=== PATIENT | male | born 1970 | race Two or more races ===

== ENCOUNTER 2023-03-29 15:16 | Inpatient (IN) | payer OTHER ==
[~2023-03-29] VITALS: Ht 167.6 cm; Wt 181.4 kg
[2023-03-29] MEDS ORDERED: XOPENEX HFA15 GM (16:07)
[2023-03-29 17:57] LABS: RED CELL DISTRIBUTION WIDTH 17.5 % (11.5-14.5)
[2023-03-29 18:06] LABS: ALBUMIN 3.3 gm/dL (3.4-5.0); BILIRUBIN TOTAL 0.68 mg/dL (0.3-1.2); CALCIUM 8.4 mg/dL (8.5-10.1); CREATININE SERUM 0.88 mg/dL (0.70-1.30); GFR 90.94; GLOBULINA 5.1 G/DL (2.4-3.5); POTASSIUM 4.18 mEq/L (3.5-5.1); TOTAL PROTEIN 8.4 gm/dL (6.4-8.2)
[2023-03-29 19:23] LABS: HEMATOCRIT 42.9 % (39.0-48.0); MEAN CELL VOLUME 74.7 fL (80.0-100.00); MEAN CORPUSCULAR HGB CONC 31.1 g/dl (32.0-36.0); PLATELET COUNT 201 K/uL (150-450); RED BLOOD COUNT 5.74 M/uL (4.00-6.00)
[2023-03-29 19:27] LABS: HEMOGLOBIN 13.3 g/dL (13-16.00); MEAN CORPUSCULAR HEMOGLOBIN 23.1 pg (27.00-32.0)
[2023-03-29] MEDS ORDERED: FUROsemide 40 MG/4 ML VIAL IV ONE (20:30)
[2023-03-29 21:48] LABS: URINE APPEARANCE Clear; URINE BILIRRUBIN Negative (NEGATIVE); URINE BLOOD Negative; URINE COLOR Yellow; URINE GLUCOSE Negative (NEGATIVE); URINE LEUKOCYTE Negative; URINE NITRATE Negative; URINE PROTEIN Negative (NEGATIVE); URINE UROBILINOGEN 0.2 E.U./dl
[2023-03-29 21:52] LABS: URINE BACTERIA 26.4 uL (0.0-1933); URINE EPITHELIAL CELLS 1.6 uL (0.0-38.8); URINE WBC 3.5 uL (0.0-23.2)
[2023-03-29] MEDS ORDERED: IPRATROPIUM BROMIDE 0.5 MG/2.5 ML AMPUL.NEB IH SCH (22:16)
[2023-03-29] MEDS ORDERED: NITROGLYCERIN IN 5 % DEXTROSE 250 ML IV SCH (22:20)
[2023-03-29] MEDS ORDERED: ENOXAPARIN SODIUM 40 MG/0.4 ML SYRINGE SUBCUTANEO SCH (22:20)
[2023-03-29 22:21] LABS: URINE RBC 0.7 uL (0.0-20.8)
[2023-03-29 22:23] LABS: ABG PH 7.155 (7.35-7.45); ABG PO2 84.4 mmHg (80-100); ABG pCO2 121.1 mmHg (35-45); BASE EXCESS 7.7 mmol/l; BICARBONATE 41.7 mmol/l (23-25); SaO2 92.7 %
[2023-03-29 22:24] LABS: Tco2 45.4 mmol/l; allen test SATISFACTORY; o2 100 %; puncture site RADIAL RIGHT
[2023-03-29 22:25] LABS: ABG PH 7.157 (7.35-7.45); ABG PO2 145.3 mmHg (80-100); ABG pCO2 117.6 mmHg (35-45); BASE EXCESS 6.9 mmol/l; BICARBONATE 40.7 mmol/l (23-25); SaO2 98.4 %; Tco2 44.3 mmol/l
[2023-03-29 22:27] LABS: allen test SATISFACTORY; o2 80 %; puncture site RADIAL LEFT
[2023-03-29] MEDS ORDERED: ONDANSETRON HCL 4 MG in 0.9 % SODIUM CHLORIDE 50 ML IV PRN (22:30)
[2023-03-29] MEDS ORDERED: ACETAMINOPHEN 500 MG GEL..CAP PO PRN (22:30)
[2023-03-29] MEDS ORDERED: METHYLPREDNISOLONE SOD SUCC 125 MG VIAL IV ONE (22:30)
[2023-03-29 23:58] LABS: D DIMER 0.51 MG/L; INR 1.04; PARTIAL THROMBOPLASTIN TIME 36.6 SECONDS (22.0-34.0); PROTHROMBIN TIME 10.9 SECONDS (9.0-11.5)
[2023-03-30] MEDS ORDERED: levoFLOXacin IN DEXTROSE 5 % 150 ML IV SCH (00:53)
[2023-03-30] MEDS ORDERED: OSELTAMIVIR PHOSPHATE 75 MG CAPSULE PO SCH (00:54)
[2023-03-30] MEDS ORDERED: FUROsemide 20 MG/2 ML VIAL IV SCH (01:00)
[2023-03-30 02:32] LABS: ABG PH 7.293 (7.35-7.45); BICARBONATE 39.3 mmol/l (23-25); SaO2 92.4 %; Tco2 41.8 mmol/l; allen test SATISFACTORY; o2 50 %; puncture site RADIAL LEFT
[2023-03-30 07:31] LABS: CHOL HDL RATIO 3.2 (0-5.0); TSH 0.561 uIU/mL (0.358-3.74)
[2023-03-30 08:44] LABS: ABG PH 7.274 (7.35-7.45); ABG PO2 72.9 mmHg (80-100); ABG pCO2 93.2 mmHg (35-45); BASE EXCESS 10.8 mmol/l; BICARBONATE 42 mmol/l (23-25); SaO2 92.6 %; Tco2 2 mmol/l; allen test SATISFACTORY; o2 45.1 %; puncture site RADIAL LEFT
[2023-03-30] MEDS ORDERED: FAMOTIDINE/PF 20 MG in 0.9 % SODIUM CHLORIDE 8 ML IV PUSH SCH (09:00)
[2023-03-30 14:13] LABS: ALBUMIN 3.3 gm/dL (3.4-5.0); BILIRUBIN TOTAL 0.51 mg/dL (0.3-1.2); CREATININE SERUM 0.89 mg/dL (0.70-1.30); GFR 89.76; GLOBULINA 4.9 G/DL (2.4-3.5); POTASSIUM 5.15 mEq/L (3.5-5.1); TOTAL PROTEIN 8.2 gm/dL (6.4-8.2)
[2023-03-31 07:24] LABS: ABG PO2 77.2 mmHg (80-100); ABG pCO2 100.4 mmHg (35-45); BASE EXCESS 14.1 mmol/l; BICARBONATE 46.1 mmol/l (23-25); SaO2 93.9 %; Tco2 49.2 mmol/l; allen test SATISFACTORY; o2 50 %; puncture site RADIAL LEFT
[2023-03-31] MEDS ORDERED: levoFLOXacin IN DEXTROSE 5 % 150 ML IV SCH (17:00)
[2023-04-01 06:24] LABS: ABG PH 7.287 (7.35-7.45)
[2023-04-01 06:25] LABS: ABG PO2 101.1 mmHg (80-100); ABG pCO2 109.8 mmHg (35-45); BASE EXCESS 18.4 mmol/l; BICARBONATE 51.3 mmol/l (23-25); SaO2 97.3 %; Tco2 54.7 mmol/l; o2 50 %; puncture site RADIAL RIGHT
[2023-04-01 06:26] LABS: allen test SATISFACTORY
[2023-04-02 06:56] LABS: ABG PH 7.342 (7.35-7.45); ABG pCO2 97.8 mmHg (35-45); BICARBONATE 51.8 mmol/l (23-25); SaO2 98.7 %
[2023-04-02 06:57] LABS: Tco2 54.8 mmol/l; allen test SATISFACTORY; o2 45 %; puncture site RADIAL RIGHT
[2023-04-02 06:59] LABS: ABG PO2 123.3 mmHg (80-100)
[2023-04-02 07:29] LABS: HEMATOCRIT 43.8 % (39.0-48.0); HEMOGLOBIN 13.5 g/dL (13-16.00); MEAN CELL VOLUME 75.4 fL (80.0-100.00); MEAN CORPUSCULAR HEMOGLOBIN 23.2 pg (27.00-32.0); MEAN CORPUSCULAR HGB CONC 30.8 g/dl (32.0-36.0); PLATELET COUNT 198 K/uL (150-450); RED CELL DISTRIBUTION WIDTH 16.4 % (11.5-14.5)
[2023-04-02 10:01] LABS: BLOOD UREA NITROGEN 16 mg/dL (7-18); BUN CREA RATIO 20 (7.0-25.0); CREATININE SERUM 0.79 mg/dL (0.70-1.30); GLUCOSE FASTING 94 mg/dL (65-100); OSMOLALITY SERUM 277 MOSM/KG (275-295); POTASSIUM 4.43 mEq/L (3.5-5.1); SODIUM 138 mmol/L (136-145)
[2023-04-02 10:02] LABS: ANION GAP 7 (10.0-20.0); CALCIUM 9.6 mg/dL (8.5-10.1); CARBON DIOXIDE > 45 mEq/L (21-32); CHLORIDE 90 mmol/L (98-107)
[2023-04-02] MEDS ORDERED: FUROsemide 20 MG/2 ML VIAL IV SCH (17:00)
[2023-04-03 06:45] LABS: ABG PO2 97.9 mmHg (80-100); ABG pCO2 86.5 mmHg (35-45)
[2023-04-03 06:46] LABS: BASE EXCESS 17.2 mmol/l; BICARBONATE 47.7 mmol/l (23-25); Tco2 50.4 mmol/l; allen test SATISFACTORY; o2 40 %; puncture site RADIAL LEFT
[2023-04-03 06:49] LABS: SaO2 97.6 %
[2023-04-04 06:23] LABS: ABG PH 7.353 (7.35-7.45); ABG PO2 109.4 mmHg (80-100); ABG pCO2 89.7 mmHg (35-45); BASE EXCESS 17.9 mmol/l; BICARBONATE 48.8 mmol/l (23-25); SaO2 98.2 %; Tco2 51.6 mmol/l; allen test SATISFACTORY; puncture site RADIAL LEFT
[2023-04-04 06:24] LABS: o2 40 %
[2023-04-04] MEDS ORDERED: LOSARTAN POTASSIUM 25 MG TABLET PO SCH (09:00)
[2023-04-05 06:36] LABS: ABG PH 7.349 (7.35-7.45); ABG pCO2 89.8 mmHg (35-45); BASE EXCESS 17.4 mmol/l; BICARBONATE 48.3 mmol/l (23-25); Tco2 51.1 mmol/l; o2 40 %
[2023-04-05 06:37] LABS: allen test SATISFACTORY; puncture site RADIAL LEFT
[2023-04-05] MEDS ORDERED: DICYCLOMINE HCL 20 MG TABLET PO SCH (21:00)
[2023-04-06 07:11] LABS: HEMATOCRIT 46.4 % (39.0-48.0); HEMOGLOBIN 14.6 g/dL (13-16.00); MEAN CELL VOLUME 73.7 fL (80.0-100.00); MEAN CORPUSCULAR HEMOGLOBIN 23.2 pg (27.00-32.0); MEAN CORPUSCULAR HGB CONC 31.4 g/dl (32.0-36.0); PLATELET COUNT 181 K/uL (150-450); RED CELL DISTRIBUTION WIDTH 16.6 % (11.5-14.5)
[2023-04-06 08:50] LABS: ABG PH 7.375 (7.35-7.45)
[2023-04-06 08:51] LABS: ABG PO2 96.1 mmHg (80-100); ABG pCO2 82.4 mmHg (35-45); BICARBONATE 47.1 mmol/l (23-25); SaO2 97.6 %; Tco2 49.6 mmol/l; o2 40 %
[2023-04-06 08:52] LABS: allen test SATISFACTORY; puncture site RADIAL LEFT
[2023-04-06 10:36] LABS: ABG PH 7.392 (7.35-7.45)
[2023-04-06 10:37] LABS: ABG PO2 71.5 mmHg (80-100); ABG pCO2 79.5 mmHg (35-45); BASE EXCESS 17.5 mmol/l; BICARBONATE 47.2 mmol/l (23-25); SaO2 94.8 %; Tco2 49.7 mmol/l; allen test SATISFACTORY; o2 50 %; puncture site RADIAL LEFT
[2023-04-06 11:54] LABS: ALBUMIN 3.1 gm/dL (3.4-5.0); BILIRUBIN TOTAL 1.1 mg/dL (0.3-1.2); CALCIUM 9.4 mg/dL (8.5-10.1); CREATININE SERUM 1.62 mg/dL (0.70-1.30); GFR 44.97; GLOBULINA 3.7 G/DL (2.4-3.5); POTASSIUM 3.99 mEq/L (3.5-5.1); TOTAL PROTEIN 6.8 gm/dL (6.4-8.2)
[2023-04-06] MEDS ORDERED: ACETAZOLAMIDE 250 MG TABLET PO SCH (12:00)
[2023-04-06] MEDS ORDERED: FAMOTIDINE/PF 20 MG/2 ML VIAL IV SCH (21:00)
[2023-04-07 06:59] LABS: CALCIUM 8.9 mg/dL (8.5-10.1); CREATININE SERUM 1.49 mg/dL (0.70-1.30); GFR 49.52; POTASSIUM 3.55 mEq/L (3.5-5.1)
[2023-04-07 09:55] LABS: ABG PH 7.385 (7.35-7.45); ABG pCO2 72.4 mmHg (35-45)
[2023-04-07 09:56] LABS: BASE EXCESS 13.6 mmol/l; BICARBONATE 42.4 mmol/l (23-25); SaO2 80.8 %; Tco2 21 mmol/l; allen test SATISFACTORY; o2 21 %; puncture site RADIAL RIGHT
[2023-04-07] MEDS ORDERED: SODIUM CHLORIDE 0.45 % 1,000 ML IV SCH (20:15)
[2023-04-08 05:29] LABS: CALCIUM 8.8 mg/dL (8.5-10.1); CREATININE SERUM 1.46 mg/dL (0.70-1.30); GFR 50.7; POTASSIUM 3.53 mEq/L (3.5-5.1)
[2023-04-08] MEDS ORDERED: FUROsemide 20 MG/2 ML VIAL IV SCH (09:00)
[2023-04-08 10:56] LABS: ABG PH 7.347 (7.35-7.45); ABG PO2 66.7 mmHg (80-100); ABG pCO2 77.8 mmHg (35-45)
[2023-04-08 10:57] LABS: BASE EXCESS 12.2 mmol/l; BICARBONATE 41.8 mmol/l (23-25); SaO2 92.5 %; Tco2 44.1 mmol/l; allen test SATISFACTORY; o2 50 %; puncture site RADIAL RIGHT
[2023-04-08] MEDS ORDERED: 0.9 % SODIUM CHLORIDE 1,000 ML IV SCH (21:45)
[2023-04-09 07:56] LABS: CALCIUM 8.6 mg/dL (8.5-10.1); CREATININE SERUM 1.65 mg/dL (0.70-1.30); GFR 44.03; POTASSIUM 3.97 mEq/L (3.5-5.1)
[2023-04-10 14:07] LABS: ABG PH 7.396 (7.35-7.45); ABG PO2 110.2 mmHg (80-100); ABG pCO2 56.1 mmHg (35-45); BASE EXCESS 6.9 mmol/l; BICARBONATE 33.7 mmol/l (23-25); SaO2 98.3 %; Tco2 35.4 mmol/l
[2023-04-10 14:08] LABS: allen test SATISFACTORY; o2 40 %; puncture site RADIAL RIGHT
[2023-04-11 09:50] LABS: ABG PH 7.363 (7.35-7.45)
[2023-04-11 09:52] LABS: ABG pCO2 63.9 mmHg (35-45)
[2023-04-11 09:53] LABS: ABG PO2 52.1 mmHg (80-100); BASE EXCESS 7.6 mmol/l; BICARBONATE 35.5 mmol/l (23-25); Tco2 37.5 mmol/l; allen test SATISFACTORY; o2 21 %; puncture site RADIAL LEFT
[2023-04-11 09:54] LABS: SaO2 85.9 %
== END 2023-04-13 16:54 | disposition home or self-care (01) | DRG 193 ==
LOC: ER 15:16 → ICU-2 23:00 → ICU 03-31 21:08 → MEDJ 04-07 03:54
PROVIDERS: Emergency Medicine; General Practice; Internal Medicine; ADMIT Internal Medicine; ATTEND Internal Medicine
PROC: 5A09557 Assistance with Respiratory Ventilation, Greater than 96 Consecutive Hours, Continuous Positive Airway Pressure (ICD-10-PCS; principal; 2023-03-29)
PROC: B246ZZZ Ultrasonography of Right and Left Heart (ICD-10-PCS; 2023-03-29)
PROC: 4A12X4Z Monitoring of Cardiac Electrical Activity, External Approach (ICD-10-PCS; 2023-03-29)
PROC: BB24ZZZ Computerized Tomography (CT Scan) of Bilateral Lungs (ICD-10-PCS; 2023-03-29)
PROC: 3E0F7GC Introduction of Other Therapeutic Substance into Respiratory Tract, Via Natural or Artificial Opening (ICD-10-PCS; 2023-03-30)
PROC: 8E0ZXY6 Isolation (ICD-10-PCS; 2023-03-30)
PROC: BB24YZZ Computerized Tomography (CT Scan) of Bilateral Lungs using Other Contrast (ICD-10-PCS; 2023-04-06)
DX: J10.1 Influenza due to other identified influenza virus with other respiratory manifestations (principal); I50.33 Acute on chronic diastolic (congestive) heart failure; J96.02 Acute respiratory failure with hypercapnia; E66.2 Morbid (severe) obesity with alveolar hypoventilation; E87.3 Alkalosis; Z68.44 Body mass index [BMI] 60.0-69.9, adult; I11.0 Hypertensive heart disease with heart failure; J44.89 Other specified chronic obstructive pulmonary disease